=== PATIENT | male | born 1975 | race Asian ===

== ENCOUNTER 2017-07-11 19:16 | Emergency (ER) | payer OTHER ==
[2017-07-11] MEDS ORDERED: SODIUM CHLORIDE 1,000 ML IV STA (19:20)
--- NOTE | 2017-07-11 19:21 | PDOC ---
History of Present Illness - History of Present Illness Initial Comments: 07/11/17 19:58 The patient is a 42 year old male, with a significant past medical history of anxiety, who presents to the emergency department with complaint of generalized weakness, feeling tired, and muscle cramping for a few weeks. He reports cramping to the back of his legs bilaterally. He states that the cramps are intermittent, however, reports the cramping has been more frequent this week. He states he has been feeling dehydrated despite drinking a lot of liquids. He reports increased urinary urgency since the increase in PO fluid intake. He reports seeing his PCP in regards to his symptoms two days ago, and states his lab results will come back in 2 weeks. He also reports a midsternal, intermittent, stabbing pain which lasts for a short moment and resolves on its own. He states he has increased is ETOH intake in the past few weeks due to increased personal stressors. He reports to drinking 7-8 tequila shots a day recently. The patient states he sees a psychiatrist at a walk-in clinic to help him with his stressors. He denies shortness of breath, headache and dizziness. He denies fever, chills, nausea, vomit, diarrhea and constipation. He denies dysuria, frequency, and hematuria. Allergies: NKDA Past surgical history: benign back tumor removed (2011) Family History: diabetes (Mother and Sister), [place] (Father age 74) Social history: occasional tobacco smoker (once a month), works as a property underwriter. <Corazon Cardona - Last Filed: 07/11/17 20:48> <Myles Byrne - Last Filed: 07/11/17 22:07> - General Chief Complaint: Weakness Stated Complaint: DRY MOUTH, WEAKNESS,POLYURIA Time Seen by Provider: 07/11/17 19:19 Past History <Corazon Cardona - Last Filed: 07/11/17 20:48> - Past Medical History Psychiatric Problems: Yes (ANXIETY) - Surgical History Appendectomy: Yes - Psycho/Social/Smoking Cessation Hx Anxiety: No Suicidal Ideation: No Smoking Status: Yes Smoking History: Current some day smoker Have you smoked in the past 12 months: Yes Number of Cigarettes Smoked Daily: 1 'Breaking Loose' booklet given: 05/25/14 Hx Alcohol Use: Yes <Myles Byrne - Last Filed: 07/11/17 22:07> - Past Medical History Allergies/Adverse Reactions: Allergies Allergy/AdvReac Type Severity Reaction Status Date / Time No Known Allergies Allergy Verified 07/11/17 19:18 Home Medications: Ambulatory Orders NK [No Known Home Medication] 07/11/17 Review of Systems - Review of Systems Able to Perform ROS?: Yes Comments:: 07/11/17 19:58 CONSTITUTIONAL: (+) generalized weakness, malaise, Absent: fever, chills, diaphoresis, loss of appetite HEENT: Absent: rhinorrhea, nasal congestion, throat pain, throat swelling, difficulty swallowing, mouth swelling, ear pain, eye pain, visual Changes CARDIOVASCULAR: Absent: chest pain, syncope, palpitations, irregular heart rate, lightheadedness , peripheral edema RESPIRATORY: Absent: cough, shortness of breath, dyspnea with exertion, orthopnea, wheezing, stridor, hemoptysis GASTROINTESTINAL: Absent: abdominal pain, abdominal distension, nausea, vomiting, diarrhea, constipation, melena, hematochezia GENITOURINARY: (+) urgency, Absent: dysuria, frequency, hesitancy, hematuria, flank pain, genital pain MUSCULOSKELETAL: (+) muscle cramping and aches to joints. Absent: joint swelling SKIN: Absent: rash, itching, pallor HEMATOLOGIC/IMMUNOLOGIC: Absent: easy bleeding, easy bruising, lymphadenopathy, frequent infections ENDOCRINE: Absent: unexplained weight gain, unexplained weight loss, heat intolerance, cold intolerance NEUROLOGIC: Absent: headache, focal weakness or paresthesia, dizziness, unsteady gait, seizure, mental status changes, bladder or bowel incontinence PSYCHIATRIC: Absent: anxiety, depression, suicidal or homicidal ideation, hallucinations <Corazon Cardona - Last Filed: 07/11/17 20:48> *Physical Exam - Vital Signs Last Vital Signs Temp Pulse Resp BP Pulse Ox 98.6 F 94 H 18 122/83 96 07/11/17 19:20 07/11/17 19:20 07/11/17 19:20 07/11/17 19:20 07/11/17 19:20 - Physical Exam Comments: 07/11/17 19:59 GENERAL: Well developed, well nourished. Awake and alert. No acute distress. HEENT: Normocephalic, atraumatic. PERRLA, EOMI. No conjunctival pallor. Sclera are non- icteric. Moist mucous membranes. Oropharynx is clear. NECK: Supple. Full ROM. No JVD. Carotid pulses 2+ and symmetric, without bruits. No thyromegaly. No lymphadenopathy. CARDIOVASCULAR: Regular rate and rhythm. No murmurs, rubs, or gallops. Distal pulses are 2+ and symmetric. PULMONARY: No evidence of respiratory distress. Lungs clear to auscultation bilaterally. No wheezing, rales or rhonchi. ABDOMINAL: Soft. Non-tender. Non-distended. No rebound or guarding. No organomegaly. Normoactive bowel sounds. MUSCULOSKELETAL Normal range of motion at all joints. No bony deformities or tenderness. No CVA tenderness. EXTREMITIES: No cyanosis. No clubbing. No edema. No calf tenderness. SKIN: Warm and dry. Normal capillary refill. No rashes. No jaundice. NEUROLOGICAL: Alert, awake, appropriate. Cranial nerves 2-12 intact. No motor deficits in the upper extremities and lower extremities. Normoreflexic in the upper and lower extremities. Normal speech. Gait is normal without ataxia. PSYCHIATRIC: Cooperative. Good eye contact. Appropriate mood and affect. <Corazon Cardona - Last Filed: 07/11/17 20:48> Heart Score/ECG Review - ECG Intrepretation Comment:: 07/11/17 20:48 EKG was read by Dr. Byrne at 20:40 Impression: Sinus rhythm with occasional premature ventricular complexes. <Corazon Cardona - Last Filed: 07/11/17 20:48> ED Treatment Course - LABORATORY CBC & Chemistry Diagram: 07/11/17 19:43 07/11/17 19:43 <Corazon Cardona - Last Filed: 07/11/17 20:48> - LABORATORY CBC & Chemistry Diagram: 07/11/17 19:43 07/11/17 19:43 <Myles Byrne - Last Filed: 07/11/17 22:07> Medical Decision Making - Medical Decision Making 07/11/17 20:20 EKG reviewed. Normal sinus rhythm 88/m. Incomplete right bundle, which was present and unchanged since EKG dated 12/23/2006. No acute ST-T wave changes. Cardiac enzymes negative Remainder of CBC and chemistries without significant abnormalities The patient is seeing a psychologist for stress and anxiety due to family problems. He has 4 children, is in the process of breaking up with his , and having difficulty at work. His symptoms are most likely related to stress. This was discussed with him, and he states that he has assumed that this is the case. He also has been drinking much more alcohol than usual, on a daily basis, and this may be contributing as well. He agrees to attempt to cut back on alcohol consumption, after discussing that it can aggravate anxiety, depression , and restlessness. He will continue to see his psychologist on a regular basis to try to work out his stress related problems. He seems more calm and comfortable upon discharge to follow-up as directed. 07/11/17 22:02 <Myles Byrne - Last Filed: 07/11/17 22:07> *DC/Admit/Observation/Transfer - Attestations Scribe Attestion: 07/11/17 20:02 Documentation prepared by Corazon Cardona, acting as medical laboratory technical officer for Myles Kate MD <Corazon Cardona - Last Filed: 07/11/17 20:48> - Discharge Dispostion Admit: No <Myles Byrne - Last Filed: 07/11/17 22:07> Diagnosis at time of Disposition: Anxiety, Psychological stress - Discharge Dispostion Disposition: HOME Condition at time of disposition: Improved - Patient Instructions Printed Discharge Instructions: DI for Anxiety -- Adult Additional Instructions: Continue to see your psychologist on a regular basis to try to minimize the effects of stress. Try to decrease her use of alcohol. Alcohol may help temporarily but in the long run well worsen your anxiety, depression, and your ability to recover.
[2017-07-11 19:29] VITALS: TEMP 98.6; BMI 30.2
[2017-07-11 19:58] LABS: EOSINOPHIL 2.6 % (0-4.5); MCHC 34.7 g/dl (32.0-35.9); MEAN CELL VOLUME 86.5 fl (80-96); MEAN PLT VOLUME 7.8 fl (7.5-11.1); NEUTROPHILS 43.8 % (42.8-82.8); PLATELET COUNT 269 K/MM3 (134-434); RDW 12.1 % (11.9-15.9); WHITE BLOOD COUNT 7.9 K/mm3 (4.0-10.8)
[2017-07-11 20:06] LABS: ALBUMIN 4.2 g/dl (3.5-5.0); ALK PHOS 74 U/L (32-92); ANION GAP 6 (8-16); BILIRUBIN,TOTAL 0.7 mg/dl (0.2-1.0); CALCIUM 8.9 mg/dl (8.4-10.2); CO2 26 mmol/L (22-28); CPK 212 IU/L (39-308); CREATININE 0.9 mg/dl (0.6-1.3); GLUCOSE,RANDOM 100 mg/dl (74-106); SGOT/AST 29 U/L (10-42); SGPT/ALT 31 U/L (10-40)
[2017-07-11 20:32] LABS: TROPONIN I (DFP) < 0.03 ng/ml (0.03-0.50)
[2017-07-11 21:24] VITALS: BP 118/78; PULSE 72
--- NOTE | 2017-07-12 08:48 | EKG ---
Test Reason : Blood Pressure : / mmHG Vent. Rate : 085 BPM Atrial Rate : 085 BPM P-R Int : 148 ms QRS Dur : 096 ms QT Int : 386 ms P-R-T Axes : 046 -17 014 degrees QTc Int : 459 ms SINUS RHYTHM WITH OCCASIONAL PREMATURE VENTRICULAR COMPLEXES POSSIBLE LEFT ATRIAL ENLARGEMENT BORDERLINE ECG WHEN COMPARED WITH ECG OF 23-DEC-2006 00:29, PREMATURE VENTRICULAR COMPLEXES ARE NOW PRESENT QT HAS LENGTHENED Confirmed by PERNELL PENA, RENZO ([id number]) on 07/12/2017 8:47:34 AM Referred By: PAMELLA APARICIO Confirmed By:RENZO GIMENEZ MD
== END 2017-07-11 21:22 | disposition home or self-care (01) ==
LOC: FER 19:16
PROC: 3E0337Z Introduction of Electrolytic and Water Balance Substance into Peripheral Vein, Percutaneous Approach (ICD-10-PCS; principal; 2017-07-11)
DX: F41.9 Anxiety disorder, unspecified (principal); F43.8 Other reactions to severe stress
CPT/HCPCS: 36415; 80053; 82553; 84484; 85025; 93005; 96360; 99284-25

== ENCOUNTER 2018-08-22 16:48 | Emergency (ER) | payer OTHER ==
[2018-08-22 16:53] VITALS: BP 137/97; PULSE 75; TEMP 98.3; BMI 29.2
--- NOTE | 2018-08-22 17:09 | PDOC ---
Attending Attestation - HPI HPI: This is a 43 year old male, who presents with worsening L flank pain for 2 days after falling off of an 8 foot ladder on 08/13/2018. Patient states tetanus is up-to-date. Denies loss of consciousness, denies dizziness or lightheadedness. Denies headache or neck pain. Denies any hematuria or dysuria. Denies taking any blood thinners. Allergies: NKDA Past surgical history: benign back tumor removed (2011) Family History: diabetes (Mother and Sister), [place] (Father age 74) Social history: occasional tobacco smoker (once a month), works as a public health social worker. - Physicial Exam PE: GENERAL: Awake, alert, and fully oriented, in no acute distress HEAD: No signs of trauma EYES: PERRLA, EOMI, sclera anicteric, conjunctiva clear NECK: Normal ROM, supple, JVD, or masses LUNGS: Breath sounds equal, clear to auscultation bilaterally. No wheezes, and no crackles. No crepitus. HEART: Regular rate and rhythm, normal S1 and S2, no murmurs, rubs or gallops ABDOMEN: Soft, LUQ tenderness to palpation, normoactive bowel sounds. No guarding, no rebound. No masses BACK: Left CVA tenderness to palaption. Healing abrasion to left upper back. Well-healing abrasion to sacral area. EXTREMITIES: Left anterior tibia --> mild surrounding erythema and warmth. Normal range of motion, no edema. No clubbing or cyanosis. No cords. NEUROLOGICAL: Cranial nerves II through XII grossly intact. Normal speech, normal gait SKIN: Warm, Dry, normal turgor, no rashes or lesions noted. <Betty Melgar - Last Filed: 08/22/18 18:36> - Resident Resident Name: Chiki Santiago - ED Attending Attestation I have performed the following: I have examined & evaluated the patient, The case was reviewed & discussed with the resident, I agree w/resident's findings & plan, Exceptions are as noted - Medical Decision Making 08/22/18 17:09 I, Dr. Mecca Santizo, DO, attest that this document has been prepared under my direction and personally reviewed by me in its entirety. I further attest, that it accurately reflects all work, treatment, procedures and medical decision -making performed by me. 08/22/18 18:19 a/p: 43yo female s/p fall from an 8ft ladder 8 days ago -c/o L flank and L lower rib pain -concern for rib fx and poss intraabd injury -also taking motrin qid -will send labs, ct c/a/p for further eval -will give ivf hydration and morphine for pain -will send trauma labs and ua -will monitor and reassess 08/22/18 18:21 mild carlos - will hydrate with 2L nss prior to ct suspect mildly elevated cr secondary to motrin use 08/22/18 18:59 pt will be signed out to the oncoming ED physician pending repeat Cr and then CT imaging <Mecca Santizo - Last Filed: 08/22/18 18:59>
--- NOTE | 2018-08-22 17:14 | PDOC ---
History of Present Illness - History of Present Illness Initial Comments: The patient is a 43M who presents for evaluation of worsening L lateral thoracic pain for 2 days after falling off of an 8 foot ladder on 08/13/2018 Denies LOC Denies SIERRA or neck pain Reports 2 days of worsening L thoracic pain Worse with movement, better with recumbency Denies fevers/chills, SIERRA, changes in vision, chest pain SOB, N/V/C/D, or increased lethargy Last tetanus shot was < 5y ago 08/22/18 17:14 <Chiki Santiago - Last Filed: 08/22/18 18:05> <Avila Ahn I - Last Filed: 08/22/18 23:22> - General Chief Complaint: Injury Stated Complaint: LEFT RIBCAGE, "WHOLE LEFT SIDE" PAIN Time Seen by Provider: 08/22/18 16:57 Past History - Past Medical History COPD: No Psychiatric Problems: Yes (ANXIETY) - Surgical History Appendectomy: Yes - Immunization History Immunization Up to Date: No - Suicide/Smoking/Psychosocial Hx Smoking Status: Yes Smoking History: Never smoked Have you smoked in the past 12 months: No Number of Cigarettes Smoked Daily: 1 Information on smoking cessation initiated: No 'Breaking Loose' booklet given: 05/25/14 Hx Alcohol Use: No Drug/Substance Use Hx: No Substance Use Type: None <Chiki Santiago - Last Filed: 08/22/18 18:05> <Avila Ahn I - Last Filed: 08/22/18 23:22> - Past Medical History Allergies/Adverse Reactions: Allergies Allergy/AdvReac Type Severity Reaction Status Date / Time No Known Allergies Allergy Verified 08/22/18 16:49 Home Medications: Ambulatory Orders Clindamycin [Cleocin -] 450 mg PO Q8H 10 Days #90 capsule 08/22/18 Oxycodone HCl/Acetaminophen [Percocet 5-325 mg Tablet] 1 tab PO HS #10 tablet MDD 2 08/22/18 Review of Systems - Review of Systems Able to Perform ROS?: Yes Comments:: GENERAL/CONSTITUTIONAL: No fever or chills. No weakness HEAD, EYES, EARS, NOSE AND THROAT: No change in vision. No ear pain or discharge. No sore throat CARDIOVASCULAR: No chest pain or shortness of breath RESPIRATORY: No cough, wheezing, or hemoptysis GASTROINTESTINAL: No nausea, vomiting, diarrhea or constipation GENITOURINARY: No dysuria, frequency, or change in urination MUSCULOSKELETAL: per HPI SKIN: per HPI NEUROLOGIC: No headache, vertigo, loss of consciousness, or change in strength/ sensation ENDOCRINE: No increased thirst. No abnormal weight change HEMATOLOGIC/LYMPHATIC: No anemia, easy bleeding, or history of blood clots ALLERGIC/IMMUNOLOGIC: No hives or skin allergy 08/22/18 17:39 Is the patient limited Martiniquais proficient: No <Chiki Santiago - Last Filed: 08/22/18 18:05> *Physical Exam - Vital Signs Last Vital Signs Temp Pulse Resp BP Pulse Ox 98.3 F 75 18 137/97 100 08/22/18 16:48 08/22/18 16:48 08/22/18 16:48 08/22/18 16:48 08/22/18 16:48 - Physical Exam Comments: GENERAL: Awake, alert, and fully oriented, in no acute distress HEAD: No signs of trauma, normocephalic, atraumatic EYES: PERRL, EOMI, sclera anicteric, conjunctiva clear ENT: Hearing grossly normal, nares patent, oropharynx clear without exudates. Moist mucosa NECK: Normal ROM, supple, no lymphadenopathy CHEST: L lateral thoracic TTP over approx 10th rib, no obvious defect, L thoracic pain with movement LUNGS: No distress, speaks full sentences, clear to auscultation bilaterally HEART:Regular rate and rhythm, normal S1 and S2, no murmurs appreciated, peripheral pulses normal and equal bilaterally ABDOMEN: Soft, nontender, normoactive bowel sounds. No guarding, no rebound EXTREMITIES : Normal inspection, Normal range of motion, no edema. No clubbing or cyanosis NEUROLOGICAL: Cranial nerves II through XII grossly intact. Normal speech, normal gait, no focal sensorimotor deficits SKIN: small abrasion over L lateral back, abrasions over lower left back, abrasion over left anterior colin with surrounding erythema and warmth 08/22/18 17:40 <Chiki Santiago - Last Filed: 08/22/18 18:05> - Vital Signs Last Vital Signs Temp Pulse Resp BP Pulse Ox 98.3 F 75 18 137/97 100 08/22/18 16:48 08/22/18 16:48 08/22/18 16:48 08/22/18 16:48 08/22/18 16:48 <Avila Ahn I - Last Filed: 08/22/18 23:22> ED Treatment Course - LABORATORY CBC & Chemistry Diagram: 08/22/18 17:40 08/22/18 17:40 <Chiki Satniago - Last Filed: 08/22/18 18:05> - LABORATORY CBC & Chemistry Diagram: 08/22/18 17:40 08/22/18 19:40 - ADDITIONAL ORDERS Additional order review: Laboratory Results 08/22/18 08/22/18 08/22/18 19:40 17:40 17:40 PT with INR 13.5 H INR 1.21 PTT (Actin FS) 30.8 Sodium 138 Potassium 4.2 Chloride 107 Carbon Dioxide 24 Anion Gap 7 L BUN 16 Creatinine 1.3 Creat Clearance w eGFR 59.70 Random Glucose 86 Calcium 8.5 Total Bilirubin AST ALT Alkaline Phosphatase Total Protein Albumin Urine Color Urine Appearance Urine pH Ur Specific [place] Urine Protein Urine Glucose (UA) Urine Ketones Urine Blood Urine Nitrite Urine Bilirubin Urine Urobilinogen Ur Leukocyte Esterase Blood Type B POSITIVE Antibody Screen Negative 08/22/18 08/22/18 17:40 17:17 PT with INR INR PTT (Actin FS) Sodium 135 L Potassium 4.0 Chloride 102 Carbon Dioxide 25 Anion Gap 8 BUN 17 Creatinine 1.4 H Creat Clearance w eGFR 54.80 Random Glucose 83 Calcium 9.4 Total Bilirubin 0.7 AST 33 ALT 49 H D Alkaline Phosphatase 77 Total Protein 7.9 Albumin 4.4 Urine Color Yellow Urine Appearance Clear Urine pH 6.5 Ur Specific [place] 1.010 Urine Protein Negative Urine Glucose (UA) Negative Urine Ketones Negative Urine Blood Negative Urine Nitrite Negative Urine Bilirubin Negative Urine Urobilinogen 0.2 Ur Leukocyte Esterase Negative Blood Type Antibody Screen 08/22/18 17:40 RBC 4.94 MCV 87.7 MCHC 33.1 RDW 12.1 MPV 8.2 - RADIOLOGY Radiology Studies Ordered: Category Date Time Status ABDOMEN & PELVIS CT WITH CONTR [CT] Stat CT Scan 08/22/18 17:08 Completed - Medications Given in the ED: ED Medications Discontinued Medications Generic Name Dose Route Start Last Admin Trade Name Freq PRN Reason Stop Dose Admin Lidocaine 1 patch 08/22/18 18:21 08/22/18 19:16 Lidoderm Patch - TP 08/22/18 18:22 1 patch ONCE ONE Administration Morphine Sulfate 4 mg 08/22/18 17:55 08/22/18 18:29 Morphine Injection - IVPUSH 08/22/18 17:56 4 mg ONCE ONE Administration Sodium Chloride 1,000 ml 08/22/18 17:55 08/22/18 18:08 Normal Saline - IV 08/22/18 17:56 1,000 ml ONCE ONE Administration Sodium Chloride 1,000 ml 08/22/18 18:04 08/22/18 18:45 Normal Saline - IV 08/22/18 18:05 1,000 ml ONCE ONE Administration <Avila Ahn I - Last Filed: 08/22/18 23:22> Medical Decision Making - Medical Decision Making The patient is a 43M who presents for evaluation for 2d of increasing L thoracic pain s/p fall from 8ft ladder on 08/13/2018 ED Course CMP, CBC, T/S, Coags CT CAP to evaluate for rib fx, splenic lac, renal injury, or other intrathoracic or intraabdominal pathology Patient currently hemodynamically stable Will Rx clinda for simple cellulitis if patient is discharged Vital Signs Temp Pulse Resp BP Pulse Ox 98.3 F 75 18 137/97 100 08/22/18 16:48 08/22/18 16:48 08/22/18 16:48 08/22/18 16:48 08/22/18 16:48 08/22/18 17:47 Last tetanus booster <5yr ago Cr 1.4, ANGELIQUE, pre-renal vs intra-renal (patient with excessive motrin use for pain control at home) will give 2L NS prior to CT No evidence of UTI on UA 08/22/18 18:05 No anemia, no leukocytosis 08/22/18 18:07 <Chiki Santiago - Last Filed: 08/22/18 18:05> *DC/Admit/Observation/Transfer <Chiki Santiago - Last Filed: 08/22/18 18:05> <Avila Ahn I - Last Filed: 08/22/18 23:22> Diagnosis at time of Disposition: Contusion of rib on left side Qualifiers: Encounter type: initial encounter Qualified Code(s): S20.212A - Contusion of left front wall of thorax, initial encounter - Discharge Dispostion Disposition: HOME Condition at time of disposition: Stable - Prescriptions Prescriptions: Clindamycin [Cleocin -] 450 mg PO Q8H 10 Days #90 capsule Oxycodone HCl/Acetaminophen [Percocet 5-325 mg Tablet] 1 tab PO HS #10 tablet MDD 2 - Patient Instructions Additional Instructions: Tylenol or Motrin as needed for the pain. If you need something stronger at nighttime you can take Percocet one tablet before bed. Return to the emergency department immediately with ANY new, persistent or worsening symptoms. Continue any medications as previously prescribed by your physician. You should follow up with your primary doctor as soon as possible regarding today's emergency department visit. . Please make sure your doctor reviews the results of your emergency evaluation. Thank you for coming to the Emergency Department today for your care. It was a pleasure to see you today. Please note that your evaluation is INCOMPLETE until you follow-up with your doctor.
[2018-08-22 17:21] LABS: PH,URINE 6.5 (4.5-8); URINE APPEARANCE Clear; URINE BILIRUBIN Negative (NEGATIVE); URINE COLOR Yellow; URINE GLUCOSE (UA) Negative (NEGATIVE); URINE KETONE Negative (NEGATIVE); URINE LEUK ESTERASE Negative (NEGATIVE); URINE NITRITE Negative (NEGATIVE); URINE PROTEIN Negative (NEGATIVE); URINE UROBILINOGEN 0.2 (0.2-1.0)
[2018-08-22 17:51] LABS: HEMATOCRIT 43.3 % (35.4-49); HEMOGLOBIN 14.3 GM/dl (11.7-16.9); MCHC 33.1 g/dl (32.0-35.9); MEAN CELL VOLUME 87.7 fl (80-96); MEAN PLT VOLUME 8.2 fl (7.5-11.1); PLATELET COUNT 328 K/MM3 (134-434); RBC 4.94 M/mm3 (4.00-5.60); RDW 12.1 % (11.9-15.9); WHITE BLOOD COUNT 7.4 K/mm3 (4.0-10.8)
[2018-08-22 17:55] LABS: ACTIVATED PTT 30.8 SECONDS (25.2-36.5)
[2018-08-22] MEDS ORDERED: morphine CARPU-JECT 4 MG/1 ML DISP.SYRIN IVPUSH ONE (17:55)
[2018-08-22] MEDS ORDERED: SODIUM CHLORIDE 0.9% 500 ML INFUS.BAG IV ONE ×2 (17:55→18:04)
[2018-08-22 17:58] LABS: ALBUMIN 4.4 g/dl (3.5-5.0); ALK PHOS 77 U/L (32-92); ANION GAP 8 MMOL/L (8-16); BILIRUBIN,TOTAL 0.7 mg/dl (0.2-1.0); BLOOD UREA NITROGEN 17 mg/dl (7-18); CALCIUM 9.4 mg/dl (8.4-10.2); CHLORIDE 102 mmol/L (98-107); CO2 25 mmol/L (22-28); CREATININE 1.4 mg/dl (0.6-1.3); GLUCOSE,RANDOM 83 mg/dl (74-106); SGOT/AST 33 U/L (10-42); SGPT/ALT 49 U/L (10-40); SODIUM 135 mmol/L (136-145); TOT PROT 7.9 g/dl (6.4-8.3)
[2018-08-22 18:00] LABS: INR 1.21 (0.82-1.09); PROTHROMBIN TIME (PATIENT) 13.5 SEC (10.2-13.0)
[2018-08-22] MEDS ORDERED: LIDOCAINE 5% TOPICAL PATCH TP ONE (18:21)
[2018-08-22] MEDS ORDERED: morphine SULFATE 4 MG/ML VIAL ONE (18:23)
[2018-08-22] MEDS ORDERED: LIDOCAINE 5% TOPICAL PATCH ONE (18:32)
--- NOTE | 2018-08-22 20:00 | PDOC ---
*Physical Exam - Vital Signs Last Vital Signs Temp Pulse Resp BP Pulse Ox 98.3 F 75 18 137/97 100 08/22/18 16:48 08/22/18 16:48 08/22/18 16:48 08/22/18 16:48 08/22/18 16:48 <Betty Melgar - Last Filed: 08/22/18 22:50> - Vital Signs Last Vital Signs Temp Pulse Resp BP Pulse Ox 98.3 F 75 18 137/97 100 08/22/18 16:48 08/22/18 16:48 08/22/18 16:48 08/22/18 16:48 08/22/18 16:48 <Avila Ahn I - Last Filed: 08/22/18 23:21> ED Treatment Course - LABORATORY CBC & Chemistry Diagram: 08/22/18 17:40 08/22/18 19:40 - ADDITIONAL ORDERS Additional order review: Laboratory Results 08/22/18 08/22/18 08/22/18 19:40 17:40 17:40 PT with INR 13.5 H INR 1.21 PTT (Actin FS) 30.8 Sodium 138 Potassium 4.2 Chloride 107 Carbon Dioxide 24 Anion Gap 7 L BUN 16 Creatinine 1.3 Creat Clearance w eGFR 59.70 Random Glucose 86 Calcium 8.5 Total Bilirubin AST ALT Alkaline Phosphatase Total Protein Albumin Urine Color Urine Appearance Urine pH Ur Specific [place] Urine Protein Urine Glucose (UA) Urine Ketones Urine Blood Urine Nitrite Urine Bilirubin Urine Urobilinogen Ur Leukocyte Esterase Blood Type B POSITIVE Antibody Screen Negative 08/22/18 08/22/18 17:40 17:17 PT with INR INR PTT (Actin FS) Sodium 135 L Potassium 4.0 Chloride 102 Carbon Dioxide 25 Anion Gap 8 BUN 17 Creatinine 1.4 H Creat Clearance w eGFR 54.80 Random Glucose 83 Calcium 9.4 Total Bilirubin 0.7 AST 33 ALT 49 H D Alkaline Phosphatase 77 Total Protein 7.9 Albumin 4.4 Urine Color Yellow Urine Appearance Clear Urine pH 6.5 Ur Specific [place] 1.010 Urine Protein Negative Urine Glucose (UA) Negative Urine Ketones Negative Urine Blood Negative Urine Nitrite Negative Urine Bilirubin Negative Urine Urobilinogen 0.2 Ur Leukocyte Esterase Negative Blood Type Antibody Screen 08/22/18 17:40 RBC 4.94 MCV 87.7 MCHC 33.1 RDW 12.1 MPV 8.2 - RADIOLOGY Radiograph Interpretation: CT Abdomen/Chest Impression: No definite rib fracture is seen. There is no CT evidence of splenic injury No definite acute pathology is seen involving the chest, abdomen, or pelvis. Reported By: Jakob Chakraborty MD. 08/22/18 22:44 - Medications Given in the ED: ED Medications Discontinued Medications Generic Name Dose Route Start Last Admin Trade Name Laura PRN Reason Stop Dose Admin Lidocaine 1 patch 08/22/18 18:21 08/22/18 19:16 Lidoderm Patch - TP 08/22/18 18:22 1 patch ONCE ONE Administration Morphine Sulfate 4 mg 08/22/18 17:55 08/22/18 18:29 Morphine Injection - IVPUSH 08/22/18 17:56 4 mg ONCE ONE Administration Sodium Chloride 1,000 ml 08/22/18 17:55 08/22/18 18:08 Normal Saline - IV 08/22/18 17:56 1,000 ml ONCE ONE Administration Sodium Chloride 1,000 ml 08/22/18 18:04 08/22/18 18:45 Normal Saline - IV 08/22/18 18:05 1,000 ml ONCE ONE Administration <Betty Melgar - Last Filed: 08/22/18 22:50> - LABORATORY CBC & Chemistry Diagram: 08/22/18 17:40 08/22/18 19:40 - ADDITIONAL ORDERS Additional order review: Laboratory Results 08/22/18 08/22/18 08/22/18 17:40 17:40 17:17 PT with INR 13.5 H INR 1.21 PTT (Actin FS) 30.8 Sodium 135 L Potassium 4.0 Chloride 102 Carbon Dioxide 25 Anion Gap 8 BUN 17 Creatinine 1.4 H Creat Clearance w eGFR 54.80 Random Glucose 83 Calcium 9.4 Total Bilirubin 0.7 AST 33 ALT 49 H D Alkaline Phosphatase 77 Total Protein 7.9 Albumin 4.4 Urine Color Yellow Urine Appearance Clear Urine pH 6.5 Ur Specific [place] 1.010 Urine Protein Negative Urine Glucose (UA) Negative Urine Ketones Negative Urine Blood Negative Urine Nitrite Negative Urine Bilirubin Negative Urine Urobilinogen 0.2 Ur Leukocyte Esterase Negative 08/22/18 17:40 RBC 4.94 MCV 87.7 MCHC 33.1 RDW 12.1 MPV 8.2 - Medications Given in the ED: ED Medications Discontinued Medications Generic Name Dose Route Start Last Admin Trade Name Laura PRN Reason Stop Dose Admin Lidocaine 1 patch 08/22/18 18:21 08/22/18 19:16 Lidoderm Patch - TP 08/22/18 18:22 1 patch ONCE ONE Administration Morphine Sulfate 4 mg 08/22/18 17:55 08/22/18 18:29 Morphine Injection - IVPUSH 08/22/18 17:56 4 mg ONCE ONE Administration Sodium Chloride 1,000 ml 08/22/18 17:55 08/22/18 18:08 Normal Saline - IV 08/22/18 17:56 1,000 ml ONCE ONE Administration Sodium Chloride 1,000 ml 08/22/18 18:04 08/22/18 18:45 Normal Saline - IV 08/22/18 18:05 1,000 ml ONCE ONE Administration <Avila Ahn I - Last Filed: 08/22/18 23:21> Progress Note - Progress Note Progress Note: Care of this patient was transferred to vt from Dr. Santizo at 7 PM. Patient fell 8 days ago off an 8 foot ladder landing on his left side. Patient now comes in complaining of left-sided pain and some mild shortness of breath. Patient has a CAT scan of his chest abdomen and pelvis pending to rule out rib fractures chest pathology, splenic pathology or abdominal pathology. <Avila Ahn I - Last Filed: 08/22/18 23:21> *DC/Admit/Observation/Transfer <Betty Melgar - Last Filed: 08/22/18 22:50> <Avila Ahn I - Last Filed: 08/22/18 23:21> Diagnosis at time of Disposition: Contusion of rib on left side - Discharge Dispostion Disposition: HOME Condition at time of disposition: Stable - Prescriptions Prescriptions: Clindamycin [Cleocin -] 450 mg PO Q8H 10 Days #90 capsule Oxycodone HCl/Acetaminophen [Percocet 5-325 mg Tablet] 1 tab PO HS #10 tablet MDD 2 - Patient Instructions Additional Instructions: Tylenol or Motrin as needed for the pain. If you need something stronger at nighttime you can take Percocet one tablet before bed. Return to the emergency department immediately with ANY new, persistent or worsening symptoms. Continue any medications as previously prescribed by your physician. You should follow up with your primary doctor as soon as possible regarding today's emergency department visit. . Please make sure your doctor reviews the results of your emergency evaluation. Thank you for coming to the Emergency Department today for your care. It was a pleasure to see you today. Please note that your evaluation is INCOMPLETE until you follow-up with your doctor.
[2018-08-22 20:02] LABS: ANION GAP 7 MMOL/L (8-16); BLOOD UREA NITROGEN 16 mg/dl (7-18); CALCIUM 8.5 mg/dl (8.4-10.2); CHLORIDE 107 mmol/L (98-107); CO2 24 mmol/L (22-28); CREATININE 1.3 mg/dl (0.6-1.3); GLUCOSE,RANDOM 86 mg/dl (74-106); POTASSIUM 4.2 mmol/L (3.5-5.1); SODIUM 138 mmol/L (136-145)
[2018-08-22] MEDS ORDERED: LIDOCAINE PATCH REMOVAL MC SCH (22:00)
== END 2018-08-22 23:20 | disposition home or self-care (01) ==
LOC: FER 16:48
PROC: 3E0337Z Introduction of Electrolytic and Water Balance Substance into Peripheral Vein, Percutaneous Approach (ICD-10-PCS; principal; 2018-08-22)
PROC: 3E033NZ Introduction of Analgesics, Hypnotics, Sedatives into Peripheral Vein, Percutaneous Approach (ICD-10-PCS; 2018-08-22)
DX: S20.212A Contusion of left front wall of thorax, initial encounter (principal); W11.XXXA Fall on and from ladder, initial encounter; Y93.89 Activity, other specified; Y92.89 Other specified places as the place of occurrence of the external cause
CPT/HCPCS: 36415; 71260-TC; 74177-TC; 80048; 80053; 81003; 85027; 85610; 85730; 86850; 86900; 86901; 96374; 99283-25

== ENCOUNTER 2018-09-29 19:19 | Emergency (ER) | payer SELFPAY ==
[2018-09-29 19:29] VITALS: BP 148/72; PULSE 86; TEMP 97.9; BMI 29.2
--- NOTE | 2018-09-29 19:55 | PDOC ---
History of Present Illness - History of Present Illness Initial Comments: 09/29/18 20:09 The patient is a 43 year old male here today for evaluation of lower left leg pain. The patient reports that he fell off of a ladder a few weeks ago and went to the ER. Since this incident the patient reports that his leg swelling has subsided but his pain remains. He notes his pain is localized to the lateral aspect of the left calf and is worse when squatting on the leg. He notes associated shortness of breath only when squatting which began today. Patient denies headache, lightheadedness. Denies fever, chills. Denies chest pain. Denies nausea, vomiting, diarrhea, abdominal pain. PAST MEDICAL HISTORY: no significant history PAST SURGICAL HISTORY: no significant history FAMILY HISTORY: no pertinent history SOCIAL HISTORY: Pt lives with family and is employed. Denies tobacco and drug use. MEDICATIONS: Denies use of any medication. ALLERGIES: As per nursing notes General: No fevers or chills, no weakness, no weight loss HEENT: No change in vision. No sore throat,. No ear pain CardioVascular: +shortness of breath when squatting. No chest pain Respiratory:No cough, or wheezing. Gastrointestinal: no nausea, vomiting, diarrhea or constipation, No rectal bleeding Genitourinary: No dysuria, hematuria, or frequency Musculoskeletal: +left calf pain Neurologic: No headache, vertigo, dizziness or loss of consciousness Psychiatric: nor depression Skin: No rashes or easy bruising Endocrine: no increased thirst or abnormal weight change Allergic: no skin or latex allergy All other systems reviewed and normal General: Well-nourished well-developed individual, no acute distress HEENT: Throat: Normal, tonsils normal, no erythema or exudate Neck: Supple, no meningeal signs, no lymphadenopathy Eyes::Pupils equal reactive and round, extraocular motion intact Chest: Nontender to palpation Cardiac: S1-S2 normal, regular rate and rhythm, no murmurs rubs or gallops Respiratory: Lungs clear to auscultation bilateral Abdomen: Soft, nondistended, normal bowel sounds, nontender to palpation diffusely Extremities: Warm, dry, no cyanosis, clubbing, tenderness, or edema Skin: No rashes Neuro: Alert and oriented x3, nonfocal exam, grossly intact, normal gait Psych: Normal mood and affect <Grupo Aguirre - Last Filed: 12/06/18 20:09> - General History Source: Patient Exam Limitations: No Limitations - History of Present Illness Initial Comments: 09/29/18 20:02 A portion of this note was documented by scribe services under my direction. I have reviewed the details of the note, within reason, and agree with the documentation with the following case summary and management plan written by me. Patient treated in the ED. Nursing notes are reviewed and incorporated into the medical decision-making. Vital signs reviewed. Assessment and plan: This is a 43-year-old male who injured his left lower extremity a few weeks ago and now comes in complaining of left calf pain when he squats down. Patient said it only hurts when he squats. Patient also is complaining of shortness of breath only when he squats down. 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 Patient otherwise is healthy, takes no medication denies any history of smoking or recreational drug use. We'll obtain ultrasound Doppler left lower extremity to rule out DVT. 09/29/18 20:59 Ultrasound was negative for any DVT or any acute pathology Patient discharged home will follow up with his primary care doctor <Avila Ahn I - Last Filed: 09/29/18 21:00> - General Chief Complaint: Pain Stated Complaint: LT LEG PAIN Time Seen by Provider: 09/29/18 19:36 Past History <Grupo Aguirre - Last Filed: 09/29/18 20:09> - Past Medical History COPD: No Psychiatric Problems: Yes (ANXIETY) - Surgical History Appendectomy: Yes - Immunization History Immunization Up to Date: No - Suicide/Smoking/Psychosocial Hx Smoking Status: Yes Smoking History: Never smoked Have you smoked in the past 12 months: No Number of Cigarettes Smoked Daily: 1 'Breaking Loose' booklet given: 05/25/14 Hx Alcohol Use: No Drug/Substance Use Hx: No Substance Use Type: None <Avila Ahn I - Last Filed: 09/29/18 21:00> - Past Medical History Allergies/Adverse Reactions: Allergies Allergy/AdvReac Type Severity Reaction Status Date / Time No Known Allergies Allergy Verified 08/22/18 16:49 Home Medications: Ambulatory Orders Ibuprofen [Motrin -] 800 mg PO ONCE 09/29/18 *Physical Exam - Vital Signs Last Vital Signs Temp Pulse Resp BP Pulse Ox 97.9 F 86 16 148/72 97 09/29/18 19:24 09/29/18 19:24 09/29/18 19:24 09/29/18 19:24 09/29/18 19:24 <Grupo Aguirre - Last Filed: 09/29/18 20:09> - Vital Signs Last Vital Signs Temp Pulse Resp BP Pulse Ox 97.9 F 86 16 148/72 97 09/29/18 19:24 09/29/18 19:24 09/29/18 19:24 09/29/18 19:24 09/29/18 19:24 <Avila Ahn I - Last Filed: 09/29/18 21:00> Moderate Sedation - Procedure Monitoring Vital Signs: Procedure Monitoring Vital Signs Temperature 97.9 F 09/29/18 19:24 Pulse Rate 86 09/29/18 19:24 Respiratory Rate 16 09/29/18 19:24 Blood Pressure 148/72 09/29/18 19:24 O2 Sat by Pulse Oximetry (%) 97 09/29/18 19:24 <Grupo Aguirre - Last Filed: 09/29/18 20:09> - Procedure Monitoring Vital Signs: Procedure Monitoring Vital Signs Temperature 97.9 F 09/29/18 19:24 Pulse Rate 86 09/29/18 19:24 Respiratory Rate 16 09/29/18 19:24 Blood Pressure 148/72 09/29/18 19:24 O2 Sat by Pulse Oximetry (%) 97 09/29/18 19:24 <Avila Ahn I - Last Filed: 09/29/18 21:00> *DC/Admit/Observation/Transfer - Attestations Scribe Attestion: 09/29/18 20:10 Documentation prepared by NORA Mott, acting as medical policy specialist for Avila Ahn MD. <Grupo Aguirre - Last Filed: 09/29/18 20:09> <Avila Ahn I - Last Filed: 09/29/18 21:00> Diagnosis at time of Disposition: Pain of left lower extremity - Discharge Dispostion Disposition: HOME Condition at time of disposition: Poor - Patient Instructions Additional Instructions: Tylenol or Motrin as needed for pain. The ultrasound was negative for any blood clots in your leg. Return to the emergency department immediately with ANY new, persistent or worsening symptoms. Continue any medications as previously prescribed by your physician. You should follow up with your primary doctor as soon as possible regarding today's emergency department visit. . Please make sure your doctor reviews the results of your emergency evaluation. Thank you for coming to the Emergency Department today for your care. It was a pleasure to see you today. Please note that your evaluation is INCOMPLETE until you follow-up with your doctor.
== END 2018-09-29 21:19 | disposition home or self-care (01) ==
LOC: FER 19:19
DX: M79.662 Pain in left lower leg (principal); F41.9 Anxiety disorder, unspecified
CPT/HCPCS: 93971-TC; 99282-25

== ENCOUNTER 2024-08-15 23:19 | Emergency (ER) | payer OTHER ==
[2024-08-15] MEDS ORDERED: IBUPROFEN 600 MG TABLET (FP) PO ONE (23:52)
[2024-08-15] MEDS: IBUPROFEN 600 MG TABLET (FP) PO ONE (23:55)
[2024-08-16 00:09] VITALS: BP 148/86; PULSE 78; TEMP 98.8; BMI 34.2
== END 2024-08-16 01:03 | disposition home or self-care (01) ==
LOC: FER 23:19
PROC: 2W3CX1Z Immobilization of Right Lower Arm using Splint (ICD-10-PCS; principal; 2024-08-15)
DX: S62.336A Displaced fracture of neck of fifth metacarpal bone, right hand, initial encounter for closed fracture (principal); W18.39XA Other fall on same level, initial encounter
CPT/HCPCS: 29125; 73130-TC-RT-FY; 99283-25